=== PATIENT | female | born 1970 | race Caucasian/White ===

== ENCOUNTER 2021-11-10 08:36 | Day surgery (SDC) | payer OTHER ==
--- NOTE | 2021-11-10 08:41 | HP ---
DATE OF SURGERY: 11/10/2021 HISTORY OF PRESENT ILLNESS: The patient is a 50-year-old last colonoscopy five years or so ago, had some polyps. Denies any melena or bloody stools at this time. She had pain. No change in bowel movements. Family history of grandfather with colon cancer, negative for stomach cancer, negative for pancreatic cancer. Given history of anemia, the patient is in need for upper and lower endoscopy to rule out early GI source. PAST MEDICAL HISTORY: Diabetes. Epilepsy. Cerebral palsy. PAST SURGICAL HISTORY: section. Tubal. Cholecystectomy in the past. Colonoscopy five years ago and had history of polyps at that time. Vagus nerve stimulator. MEDICATIONS: Metformin, Trileptal, Neurontin, lisinopril, loratadine, simvastatin. ALLERGIES: SULFA. PENICILLIN. MORPHINE. CALCIUM. LATEX. FAMILY HISTORY: Grandfather with colon cancer. SOCIAL HISTORY: No smoking or alcohol abuse. REVIEW OF SYSTEMS: Fourteen systems reviewed. No chest pain or palpitations. Other systems negative or noncontributory as above and per preadmission questionnaire. PHYSICAL EXAMINATION: GENERAL: No acute distress. HEENT: Sclerae nonicteric. NECK: No JVD. CHEST: Equal excursion, nonlabored breathing. CVS: Regular rate and rhythm. ABDOMEN: Soft. No peritoneal signs. EXTREMITIES: No significant edema. NEURO: Alert, oriented, moving extremities symmetrically. RECTAL: Deferred timed to endoscopy exam. PSYCH: Appropriate mood and affect. IMPRESSION: Anemia of unclear etiology. She is in need of upper and lower endoscopy for further evaluation. She was shown the risk sheet and explained the procedure in detail including but not limited to bleeding or infection, risk of bowel injury or perforation possibly requiring open procedure, risk of missed or nondiagnosis or incomplete exam possibly requiring barium enema, barium swallow, other studies or procedures. General risk of anesthesia or sedation, risk of bowel prep but not limited to, consent obtained. Will proceed with EGD and colonoscopy as an outpatient.
[2021-11-10] MEDS ORDERED: Lactated Ringers 1,000 ML IV SCH (09:00)
[2021-11-10] MEDS ORDERED: Lactated Ringers 1,000 ML IV ONE (09:08)
[2021-11-10] MEDS ORDERED: DIPRIVAN 200 MG/20 ML IV ONE ×2 (10:37→10:55)
[2021-11-10] MEDS ORDERED: Xylocaine-Mpf 2% 5 Ml Vial ONE (10:37)
[2021-11-10 11:58] VITALS: BP 109/80; PULSE 72; O2SAT 100
--- NOTE | 2021-11-10 14:56 | OP ---
SURGERY DATE/TIME: 11/10/2021 1035 PREOPERATIVE DIAGNOSIS: Anemia. POSTOPERATIVE DIAGNOSES: 1) Minimal to mild gastritis. 2) Very short segment of early distal gastroesophagitis. 3) Small early colon polyp versus hyperplastic lesion. 4) Fair bowel prep. 5) No signs of any active major source of upper or lower GI bleeding. PROCEDURES: 1) EGD with cold biopsy of antrum to evaluate for Helicobacter pylori. 2) Cold biopsy distal esophagus to evaluate very short segment distal esophagitis. 3) Colonoscopy to cecum with hot biopsy polypectomy small sigmoid colon early polyp versus hyperplastic lesion x5 or 6. SURGEON: Dr. Antonino Hernández. ANESTHESIA: MAC. ESTIMATED BLOOD LOSS: Minimal. INDICATIONS: As noted above. Risks and benefits explained in detail and not limited to and consent obtained. DESCRIPTION OF PROCEDURE AND FINDINGS: The patient is taken to the endoscopy room. MAC anesthesia induced. After official time out and no disagreement with planned procedure, bite block positioned. Video gastroscope easily passed down the esophagus to the patent pylorus. Third, second and first portion of the duodenum grossly unremarkable. Back in the stomach, she had some mild gastric erythema and some minimal to mild gastritis. Cold biopsy taken to evaluate for Helicobacter pylori. Good hemostasis noted. On retroflex the gastroesophageal junction snug against the scope. No signs of any large hiatal hernia visible endoscopically. There were no signs of any ulcer. No signs of any obvious mass in the stomach. Scope pulled back. The gastroesophageal junction 40 cm. Z-line was fairly crisp. There was a couple little splotchy area, a little bit of redness in the distal esophagus possibly some minimal early distal esophagitis. Cold biopsy taken for pathologic evaluation. Good hemostasis noted. The remainder of the esophagus grossly unremarkable. Attention is then turned to colonoscopy. Digital rectal exam did not reveal any rectal masses. Video colonoscope inserted and passed up through the very tortuous sigmoid, descending, transverse, ascending colon around to the cecum. Appendiceal orifice and valve well visualized and photo documented. Prep overall was fair. A little bit of liquidy semi-solid stool just slightly limiting exam for very small lesions. Scope is carefully withdrawn over the next ten minutes. No signs of any large polyps, masses or obstructing lesions. No signs of any major source of any GI bleed or any major source of anemia on slow careful withdrawal of the scope. In the sigmoid colon, there were five or six very small, 2 mm early polyps versus hyperplastic lesion removed with hot biopsy forceps with brief bursts of cautery. Good hemostasis noted. Otherwise no signs of any large polyps, masses or obstructing lesions. Findings discussed with the family out in the waiting area. She tolerated the procedure well. There were no immediate complications.
== END 2021-11-10 12:05 | disposition home or self-care (01) ==
LOC: SDC 08:36
PROVIDERS: ATTEND Surgery
DX: K29.70 Gastritis, unspecified, without bleeding (principal); K63.5 Polyp of colon; Z80.0 Family history of malignant neoplasm of digestive organs; D64.9 Anemia, unspecified; E11.9 Type 2 diabetes mellitus without complications; Z86.010 Personal history of colon polyps
CPT/HCPCS: 82947; J2704

== ENCOUNTER 2024-03-17 14:10 | Emergency (ER) | payer MEDICARE ==
--- NOTE | 2024-03-17 14:16 | ERPHSYRPT ---
- History of Present Illness Time Seen by Provider: 03/17/24 14:16 Source: patient Exam Limitations: no limitations Physician History: This is a morbidly obese 53-year-old white female patient of Dr. Cartwright who has been undergoing outpatient therapy/management of low sodium level. On 03/14/2024 the patient had a serum sodium level of 128. This morning, the patient had a blood draw that showed her sodium at 125. Patient states other than a mild headache which she often has, she has no symptoms. Patient denies chest pain. Patient denies visual changes. Patient denies abdominal pain. Patient denies nausea vomiting and diarrhea symptoms. Patient states management of her low sodium has included fluid restriction and changing the type of electrolyte fluids that she was told to take orally. She has been on all her medications chronically. There is been no new changes to her medication list. Patient has a history of hyperlipidemia, diabetes, seizure disorder, hypertension and sleep apnea. Timing/Duration: today Severity: mild Modifying Factors: Improves With: nothing Associated Symptoms: headaches (Mild, generalized) Allergies/Adverse Reactions: Latex, Natural Rubber Allergy (Intermediate, Verified 01/29/24 20:29) Rash Penicillins Allergy (Intermediate, Verified 01/29/24 20:29) Rash kidney pain Sulfa (Sulfonamide Antibiotics) Allergy (Intermediate, Verified 01/29/24 20:29) Rash calcium Allergy (Mild, Verified 01/29/24 20:29) Rash morphine Adverse Reaction (Mild, Verified 01/29/24 20:29) Nausea and Vomiting IV contrast Allergy (Mild, Uncoded 01/29/24 20:33) Home Medications: Fluticasone Propionate [Flonase NASAL] 16 gm NS DAILY PRN PRN 11/21/20 [History] Gabapentin [Neurontin] 300 mg PO BID 11/21/20 [History] Loratadine 10 mg [Claritin 10 mg] 10 mg PO DAILY PRN PRN 11/21/20 [History] Metformin HCl 500 mg [Glucophage 500 MG] 500 mg PO BIDWM 11/21/20 [His tory] OXcarbazepine [Trileptal] 600 mg PO BID 11/21/20 [History] Simvastatin 20Mg [Zocor 20Mg] 40 mg PO DAILY 11/21/20 [History] Albuterol 17 gm IH BID 06/05/21 [History] Lisinopril 10 mg [Zestril 10 MG] 10 mg PO DAILY 11/05/21 [History] Umeclidinium Brm/Vilanterol Tr [Anoro Ellipta 62.5-25 Mcg INH] 1 inh PO DAILY 11/05/21 [History] Semaglutide [Ozempic] 2 mg SQ WEEKLY 01/29/24 [History] Hx Tetanus, Diphtheria Vaccination/Date Given: No Hx Influenza Vaccination/Date Given: Yes Hx Pneumococcal Vaccination/Date Given: No Travel Risk - International Travel Have you traveled outside of the country in past 3 weeks: No - Emerging Infectious Disease Are you exhibiting symptoms associated with any current EIDs: No - Review of Systems Constitutional: No Symptoms Eyes: No Symptoms Ears, Nose, & Throat: No Symptoms Respiratory: No Symptoms Cardiac: No Symptoms Abdominal/Gastrointestinal: No Symptoms Genitourinary Symptoms: No Symptoms Musculoskeletal: No Symptoms Skin: No Symptoms Neurological: Headache (Mild, generalized) Psychological: No Symptoms Endocrine: No Symptoms Hematologic/Lymphatic: No Symptoms Immunological/Allergic: No Symptoms All Other Systems: Reviewed and Negative - Past Medical History Pertinent Past Medical History: Yes Neurological History: Seizures, Other ENT History: No Pertinent History Cardiac History: High Cholesterol, Hypertension Respiratory History: Sleep Apnea Endocrine Medical History: Diabetes Type II Musculoskeletal History: Osteoarthritis GI Medical History: No Pertinent History History: No Pertinent History Psycho-Social History: No Pertinent History Female Reproductive Disorders: No Pertinent History Other Medical History: Cerebral Palsey with R sided effect. Stefan nerve stimulator. - Past Surgical History Past Surgical History: Yes Neuro Surgical History: No Pertinent History Cardiac: Cardiac Catheterization Respiratory: No Pertinent History Gastrointestinal: Appendectomy, Cholecystectomy Genitourinary: No Pertinent History Musculoskeletal: Other Female Surgical History: Section, Tubal Ligation Other Surgical History: vagal nerve stimulator implanted,carpal tunnel release. tendon stretched right ankle. - Social History Smoking Status: Never smoker Exposure to second hand smoke: No Drug Use: none - Social Determinants of Health Will the patient participate in the screening: Yes Do you worry about a steady place to live?: No In the past 12 months,have you had to go without utilities?: No Transportation Issues: No Has anyone in your support network made you feel unsafe?: No Have you or anyone in your house had to go without enough: No - Nursing Vital Signs Nursing Vital Signs: Initial Vital Signs Temperature 97.7 F 03/17/24 14:22 Pulse Rate 86 03/17/24 14:22 Respiratory Rate 18 03/17/24 14:22 Blood Pressure 157/88 03/17/24 14:22 O2 Sat by Pulse Oximetry 98 03/17/24 14:22 Pain Scale Pain Intensity 0 - Physical Exam General Appearance: no apparent distress, alert, anxiety, obese Eye Exam: PERRL/EOMI, eyes nml inspection Ears, Nose, Throat Exam: normal ENT inspection, moist mucous membranes Neck Exam: normal inspection, non-tender, supple, full range of motion Respiratory Exam: normal breath sounds, lungs clear, airway intact, No chest tenderness, No respiratory distress Cardiovascular Exam: regular rate/rhythm, normal heart sounds, normal peripheral pulses Gastrointestinal/Abdomen Exam: soft, normal bowel sounds, No tenderness Pelvic Exam: not done Rectal Exam: not done Extremity Exam: normal inspection, normal range of motion, pelvis stable Neurologic Exam: alert, oriented x 3, cooperative, caser in II-XII nml as tested, normal mood/affect, nml cerebellar function, nml station & gait, sensation nml Skin Exam: normal color, warm, dry Lymphatic Exam: No adenopathy SpO2 Interpretation: normal O2 Delivery: Room Air - Course Nursing assessment & vital signs reviewed: Yes Ordered Tests: Active Orders 24 hr Category Date Time Status IV Insertion STAT Care 03/17/24 14:53 Active CBC W DIFF Stat Lab 03/17/24 14:40 Completed CMP Stat Lab 03/17/24 14:40 Completed CULTURE,URINE Stat Lab 03/17/24 15:08 Received MAGNESIUM Stat Lab 03/17/24 14:40 Completed POTASSIUM, URINE RANDOM Stat Lab 03/17/24 15:08 Completed Sodium, Urine Stat Lab 03/17/24 15:08 Completed UA W/RFX UR CULTURE Stat Lab 03/17/24 15:08 Completed Medication Summary Generic Name Dose Route Start Last Admin Trade Name Freq PRN Reason Stop Dose Admin Magnesium Oxide 400 mg 03/18/24 18:04 03/17/24 18:08 Magnesium Oxide 400 Mg Tablet PO 03/18/24 18:05 400 mg STAT ONE Administration Discontinued Medications Generic Name Dose Route Start Last Admin Trade Name Freq PRN Reason Stop Dose Admin Sodium Chloride 1,000 mls @ 999 mls/hr 03/17/24 14:53 03/17/24 16:40 Sodium Chloride 0.9% 1000 Ml IV 03/17/24 15:53 Infused .Q1H1M STA Infusion Sodium Chloride Confirm 03/17/24 14:58 Sodium Chloride 0.9% 1000 Ml Administered 03/17/24 14:59 Dose 1,000 mls @ ud .ROUTE .STK-MED ONE Levofloxacin/Dextrose 500 mg in 100 mls @ 100 mls/hr 03/17/24 16:27 03/17/24 17:53 Levofloxacin 500mg/100ml D5w IV 03/17/24 17:26 Infused STAT STA Infusion Levofloxacin/Dextrose Confirm 03/17/24 16:34 Levofloxacin 500mg/100ml D5w Administered 03/17/24 16:35 Dose 500 mg in 100 mls @ ud IV .STK-MED ONE Magnesium Oxide Confirm 03/17/24 18:06 Magnesium Oxide 400 Mg Tablet Administered 03/17/24 18:07 Dose 400 mg .ROUTE .STK-MED ONE Lab/Rad Data: Laboratory Result Diagrams 03/17/24 14:40 03/17/24 14:40 Laboratory Results 03/17/24 03/17/24 03/17/24 Range/Units 15:08 15:08 14:40 WBC (3.98-10.04) x10^3/uL RBC (3.93-5.22) x10^6/uL Hgb (11.2-15.7) g/dL Hct (34.1-44.9) % MCV (79.4-94.8) fL MCH (25.6-32.2) pg MCHC (32.2-35.5) g/dL RDW (11.7-14.4) % Plt Count (182-369) x10^3/uL MPV (9.4-12.3) fL Gran % (34.0-71.1) % Immature Gran % (Auto) (0.001-0.429) % Nucleat RBC Rel Count (0.00-0.2) % Eos # (Auto) (0.04-0.36) x10^3/uL Immature Gran # (Auto) (0.001-0.031) x10^3u/L Absolute Lymphs (auto) (1.18-3.74) x10^3/uL Absolute Monos (auto) (0.24-0.86) x10^3/uL Absolute Nucleated RBC (0.00-0.012) x10^3u/L Lymphocytes % (19.3-51.7) % Monocytes % (4.7-12.5) % Eosinophils % (0.7-5.8) % Basophils % (0.1-1.2) % Absolute Granulocytes (1.56-6.13) x10^3/uL Basophils # (0.01-0.08) x10^3/uL Sodium 122 L (135-145) mmol/L Potassium 4.0 (3.5-5.1) mmol/L Chloride 90 L (98-107) mmol/L Carbon Dioxide 24 (22-30) mmol/L Anion Gap 12.2 (5-15) MEQ/L BUN 12 (7-17) mg/dL Creatinine 0.79 (0.52-1.04) mg/dL Estimated GFR 90.0 ML/MIN Glucose 94 (74-106) mg/dL Calcium 8.7 (8.4-10.2) mg/dL Magnesium 1.5 L (1.6-2.3) mg/dL Total Bilirubin 0.30 (0.2-1.3) mg/dL AST 25 (14-36) U/L ALT 26 (0-35) U/L Alkaline Phosphatase 126 (38-126) U/L Serum Total Protein 6.3 (6.3-8.2) g/dL Albumin 3.8 (3.5-5.0) g/dL Urine Color Yellow (Yellow) Urine Appearance Clear (Clear) Urine pH 6.5 (4.6-8.0) Ur Specific [place] 1.015 (1.005-1.030) Urine Protein Negative (Negative) Urine Glucose (UA) Negative (Negative) mg/dL Urine Ketones Negative (Negative) Urine Blood Negative (Negative) Urine Nitrite Negative (Negative) Urine Bilirubin Negative (Negative) Urine Urobilinogen 0.2 (0.2) mg/dL Ur Leukocyte Esterase Small A (Negative) U Hyaline Cast (Auto) NONE SEEN (0-2) /LPF Urine Microscopic RBC 0-2 (0-5) /HPF Urine Microscopic WBC 21-50 A (0-5) /HPF Ur Epithelial Cells Rare (None Seen) /HPF Urine Bacteria None Seen (None Seen) /HPF Urine Culture Reflexed YES (NO) Urine Sodium 128 H (30-90) mmol/L Urine Potassium 39.1 H (0.1-0.7) mmol/L 07// Range/Units 14:40 WBC 5.0 (3.98-10.04) x10^3/uL RBC 3.84 L (3.93-5.22) x10^6/uL Hgb 10.6 L (11.2-15.7) g/dL Hct 31.3 L (34.1-44.9) % MCV 81.5 (79.4-94.8) fL MCH 27.6 (25.6-32.2) pg MCHC 33.9 (32.2-35.5) g/dL RDW 13.9 (11.7-14.4) % Plt Count 264 (182-369) x10^3/uL MPV 8.4 L (9.4-12.3) fL Gran % 73.1 H (34.0-71.1) % Immature Gran % (Auto) 0.4 (0.001-0.429) % Nucleat RBC Rel Count 0.0 (0.00-0.2) % Eos # (Auto) 0 L (0.04-0.36) x10^3/uL Immature Gran # (Auto) 0.02 (0.001-0.031) x10^3u/L Absolute Lymphs (auto) 0.91 L (1.18-3.74) x10^3/uL Absolute Monos (auto) 0.39 (0.24-0.86) x10^3/uL Absolute Nucleated RBC 0.00 (0.00-0.012) x10^3u/L Lymphocytes % 18.4 L (19.3-51.7) % Monocytes % 7.9 (4.7-12.5) % Eosinophils % 0.0 L (0.7-5.8) % Basophils % 0.2 (0.1-1.2) % Absolute Granulocytes 3.62 (1.56-6.13) x10^3/uL Basophils # 0.01 (0.01-0.08) x10^3/uL Sodium (135-145) mmol/L Potassium (3.5-5.1) mmol/L Chloride (98-107) mmol/L Carbon Dioxide (22-30) mmol/L Anion Gap (5-15) MEQ/L BUN (7-17) mg/dL Creatinine (0.52-1.04) mg/dL Estimated GFR ML/MIN Glucose (74-106) mg/dL Calcium (8.4-10.2) mg/dL Magnesium (1.6-2.3) mg/dL Total Bilirubin (0.2-1.3) mg/dL AST (14-36) U/L ALT (0-35) U/L Alkaline Phosphatase (38-126) U/L Serum Total Protein (6.3-8.2) g/dL Albumin (3.5-5.0) g/dL Urine Color (Yellow) Urine Appearance (Clear) Urine pH (4.6-8.0) Ur Specific [place] (1.005-1.030) Urine Protein (Negative) Urine Glucose (UA) (Negative) mg/dL Urine Ketones (Negative) Urine Blood (Negative) Urine Nitrite (Negative) Urine Bilirubin (Negative) Urine Urobilinogen (0.2) mg/dL Ur Leukocyte Esterase (Negative) U Hyaline Cast (Auto) (0-2) /LPF Urine Microscopic RBC (0-5) /HPF Urine Microscopic WBC (0-5) /HPF Ur Epithelial Cells (None Seen) /HPF Urine Bacteria (None Seen) /HPF Urine Culture Reflexed (NO) Urine Sodium (30-90) mmol/L Urine Potassium (0.1-0.7) mmol/L - Progress Progress: unchanged Progress Note: 03/17/24 15:12 My medical decision making and the assignment of moderate complexity to this patient's medical issue today is based on review of the patient's past medical history, review patient medication list, review of patient drug allergy list, history present illness and physical findings on examination. The workup in this patient includes placement of intravenous line, infusion of normal saline solution, CBC, CMP, magnesium level, urinalysis, urine sodium, urine potassium, urine osmolality. Differential diagnosis includes but not limited to hyponatremia, UTI, dehydration 03/17/24 17:29 I interpreted the patient's laboratory data results. The patient has hyponatremia that is worse than the labs showed this morning. She also has a urinary tract infection and is mildly dehydrated. I spoke with the telehospitalist, Dr. Mckeon. I reviewed the patient history, presenting complaint, physical findings on examination and the results of the laboratory studies. The hospitalist is concerned that this patient's sodium is actually lower than when the process of outpatient management began. The patient is on fluid restriction and is receiving electrolyte fluid supplementation without benefit. She prefers the patient be transferred to a facility where there is a resource economist is available. 03/17/24 18:10 I reviewed the patient history, presenting complaint, physical findings on examination results of laboratory studies with the transfer center at [facility]. Patient is auto accepted. The accepting physician is Dr.Jin Vo. Counseled pt/family regarding: lab results, diagnosis Medical Desision Making - Diagnostic Testing Diagnostic test were ordered, analyzed, and reviewed by me: Yes - Risk of complications Minimal Risk: Minimal risk of morbidity - Departure Clinical Impression: Hyponatremia, UTI (urinary tract infection), Weakness, Headache Condition: Stable Critical Care Time: No Referrals: DUSTIN CARTWRIGHT, [Primary Care Provider] - Follow up/PCP as directed Additional Instructions: Follow your outpatient management in terms of amount of fluid intake and type of fluid intake. Continue medication as prescribed. Call your primary care provider today, 03/17/2024, to make arrangements for follow-up appointment for further evaluation and management including having them evaluate and review the urine electrolyte and osmolality and possible referral to a resource economist if they feel it is indicated.
[2024-03-17 14:27] VITALS: TEMP 97.7
[2024-03-17] MEDS ORDERED: Sodium Chloride 0.9% 1000 ML 1,000 ML ONE (14:58)
[2024-03-17] MEDS: Sodium Chloride 0.9% 1000 ML 1,000 ML IV STA (15:02)
[2024-03-17 15:05] LABS: Absolute Neutrophil Ct (ANC) 3.62 x10^3/uL (1.56-6.13); BASOPHIL % 0.2 % (0.1-1.2); Basophil (Absolute #) 0.01 x10^3/uL (0.01-0.08); Eosinophil (Absolute #) 0 x10^3/uL (0.04-0.36); Hematocrit 31.3 % (34.1-44.9); Hemoglobin 10.6 g/dL (11.2-15.7); IMMATURE GRAN # 0.02 x10^3u/L (0.001-0.031); IMMATURE GRAN % 0.4 % (0.001-0.429); Lymphocyte (Absolute #) 0.91 x10^3/uL (1.18-3.74); Lymphocytes % 18.4 % (19.3-51.7); Mean Cell Volume 81.5 fL (79.4-94.8); Mean Corpuscular Hemoglobin 27.6 pg (25.6-32.2); Mean Corpuscular Hgb Concent. 33.9 g/dL (32.2-35.5); Mean Platelet Volume 8.4 fL (9.4-12.3); Monocyte (Absolute #) 0.39 x10^3/uL (0.24-0.86); Monocytes % 7.9 % (4.7-12.5); Neutrophil % 73.1 % (34.0-71.1); Platelet Count 264 x10^3/uL (182-369); Red Blood Count 3.84 x10^6/uL (3.93-5.22); Red Cell Distribution Width 13.9 % (11.7-14.4)
[2024-03-17 15:20] LABS: Appearance Clear (Clear); Bacteria None Seen /HPF (None Seen); Bilirubin Negative (Negative); Blood Negative (Negative); Epithelial Cells Rare /HPF (None Seen); Glucose, Urine Negative (Negative); Hyaline Casts NONE SEEN /LPF (0-2); Ketones Negative (Negative); Leukocyte Esterase Small (Negative); Nitrite Negative (Negative); Ph 6.5 (4.6-8.0); Protein,Urine Dip Negative (Negative); RBC 0-2 /HPF (0-5); Specific Gravity 1.015 (1.005-1.030); Urobilinogen 0.2 mg/dL (0.2); WBC 21-50 /HPF (0-5)
[2024-03-17 15:20] LABS: ALBUMIN 3.8 g/dL (3.5-5.0); ANION GAP 12.2 MEQ/L (5-15); BILIRUBIN,TOTAL 0.3 mg/dL (0.2-1.3); Calcium 8.7 mg/dL (8.4-10.2); Creatinine 1 0.79 mg/dL (0.52-1.04); MAGNESIUM 1.5 mg/dL (1.6-2.3); Total Protein 6.3 g/dL (6.3-8.2)
[2024-03-17 15:21] LABS: ADD URINE CULTURE? YES (NO)
[2024-03-17 15:30] LABS: POTASSIUM, URINE RANDOM 39.1 mmol/L (0.1-0.7)
[2024-03-17] MEDS ORDERED: Levofloxacin 500MG/100ML D5W 500 MG/100 ML BAG IV ONE (16:34)
[2024-03-17] MEDS: Levofloxacin 500MG/100ML D5W 500 MG/100 ML BAG IV STA (16:37)
[2024-03-17] MEDS ORDERED: MAG-OX 400 ONE (18:06)
[2024-03-17] MEDS: MAG-OX 400 PO ONE (18:08)
[2024-03-17] MEDS ORDERED: Zofran 4 MG/2 ML VIAL ONE (19:34)
[2024-03-17] MEDS ORDERED: Zofran 4 MG/2 ML VIAL IV PRN (19:36)
[2024-03-17] MEDS ORDERED: Compazine 10 MG/2 ML ONE (19:42)
[2024-03-17] MEDS ORDERED: Sodium Chloride 0.9% 500 ML 500 ML IV ONE (19:42)
[2024-03-17] MEDS: Compazine 10 MG/2 ML IV ONE (19:47)
[2024-03-17] MEDS: Sodium Chloride 0.9% 500 ML 500 ML IV ONE (19:47)
[2024-03-17 21:03] VITALS: BP 142/94; PULSE 82; RESP 18; O2SAT 96
== END 2024-03-17 21:15 | disposition short-term general hospital (02) ==
LOC: ED 14:10
DX: E87.1 Hypo-osmolality and hyponatremia (principal); N39.0 Urinary tract infection, site not specified; R53.1 Weakness; R51.9 Headache, unspecified; E78.5 Hyperlipidemia, unspecified; E11.9 Type 2 diabetes mellitus without complications; I10 Essential (primary) hypertension; Z79.84 Long term (current) use of oral hypoglycemic drugs; Z79.85 Long-term (current) use of injectable non-insulin antidiabetic drugs; Z79.899 Other long term (current) drug therapy
CPT/HCPCS: 36000; 36415; 80053; 81001; 83735; 83935; 84133; 84300; 85025; 87077; 87086; 87186; 96360; 96365; 99285; J1956; J2405; A9270-GY

== ENCOUNTER 2024-11-05 15:30 | Emergency (ER) | payer MEDICARE ==
[2024-11-05 16:03] VITALS: BP 115/85; PULSE 89; O2SAT 98
--- NOTE | 2024-11-05 16:09 | ERPHSYRPT ---
- History of Present Illness Time Seen by Provider: 11/05/24 16:09 Source: patient Exam Limitations: no limitations Patient Subjective Stated Complaint: cough, congestion, right sided headache, right eye gunky, lots of drainage for 3 weeks Triage Nursing Assessment: Pt brought self to the ER, vitals wnl, rates head pain as 4/10, pulses normal, skin n/w/d, congested, non productive cough, has completed a 10 day round of antibiotics with no change, denies chest pain, doesn't appear to be in any distress Allergies/Adverse Reactions: Latex, Natural Rubber Allergy (Intermediate, Verified 11/05/24 16:03) Rash Penicillins Allergy (Intermediate, Verified 11/05/24 16:03) Rash kidney pain Sulfa (Sulfonamide Antibiotics) Allergy (Intermediate, Verified 11/05/24 16:03) Rash calcium Allergy (Mild, Verified 11/05/24 16:03) Rash morphine Adverse Reaction (Mild, Verified 11/05/24 16:03) Nausea and Vomiting IV contrast Allergy (Mild, Uncoded 11/05/24 16:03) Home Medications: Fluticasone Propionate [Flonase NASAL] 16 gm NS DAILY PRN PRN 11/21/20 [History] Gabapentin [Neurontin] 300 mg PO BID 11/21/20 [History] Loratadine 10 mg [Claritin 10 mg] 10 mg PO DAILY PRN PRN 11/21/20 [History] Metformin HCl 500 mg [Glucophage 500 MG] 500 mg PO BIDWM 11/21/20 [History] OXcarbazepine [Trileptal] 600 mg PO BID 11/21/20 [History] Simvastatin 20Mg [Zocor 20Mg] 40 mg PO DAILY 11/21/20 [History] Albuterol 17 gm IH BID 06/05/21 [History] Lisinopril 10 mg [Zestril 10 MG] 10 mg PO DAILY 11/05/21 [History] Umeclidinium Brm/Vilanterol Tr [Anoro Ellipta 62.5-25 Mcg INH] 1 inh PO DAILY 11/05/21 [History] Semaglutide [Ozempic] 2 mg SQ WEEKLY 01/29/24 [History] Hx Tetanus, Diphtheria Vaccination/Date Given: No Hx Influenza Vaccination/Date Given: Yes Hx Pneumococcal Vaccination/Date Given: No Travel Risk - International Travel Have you traveled outside of the country in past 3 weeks: No - Emerging Infectious Disease Are you exhibiting symptoms associated with any current EIDs: No - Past Medical History Pertinent Past Medical History: Yes Neurological History: Seizures, Other ENT History: No Pertinent History Cardiac History: High Cholesterol, Hypertension Respiratory History: Sleep Apnea Endocrine Medical History: Diabetes Type II Musculoskeletal History: Osteoarthritis GI Medical History: No Pertinent History History: No Pertinent History Psycho-Social History: No Pertinent History Female Reproductive Disorders: No Pertinent History Other Medical History: Cerebral Palsey with R sided effect. Stefan nerve stimulator. - Past Surgical History Past Surgical History: Yes Neuro Surgical History: No Pertinent History Cardiac: Cardiac Catheterization Respiratory: No Pertinent History Gastrointestinal: Appendectomy, Cholecystectomy Genitourinary: No Pertinent History Musculoskeletal: Other Female Surgical History: Section, Tubal Ligation Other Surgical History: vagal nerve stimulator implanted,carpal tunnel release. tendon stretched right ankle. - Female History Hx Last Menstrual Period: menopause Hx Now: No - Social History Smoking Status: Never smoker Exposure to second hand smoke: No Drug Use: none - Social Determinants of Health Will the patient participate in the screening: Yes Do you worry about a steady place to live?: No Do you have any problems with any of the following?: No known problems In the past 12 months,have you had to go without utilities?: No Transportation Issues: No Has anyone in your support network made you feel unsafe?: No Have you or anyone in your house had to go w/o enough food: No - Nursing Vital Signs Nursing Vital Signs: Initial Vital Signs Pulse Rate 89 11/05/24 15:52 Blood Pressure 115/85 11/05/24 15:52 O2 Sat by Pulse Oximetry 98 11/05/24 15:52 Pain Scale Pain Intensity 4 - Physical Exam SpO2: 98 - Departure Departure Disposition: Home Clinical Impression: Acute bacterial sinusitis Condition: Good Critical Care Time: No Referrals: DUSTIN CARTWRIGHT DO [Primary Care Provider] - Follow up/PCP as directed Instructions: Sinusitis in adults Prescriptions: Doxycycline Hyclate 100 mg PO BID 10 Days #19 tablet predniSONE [Prednisone] 50 mg PO DAILY 4 Days #4 tablet
[2024-11-05] MEDS ORDERED: Vibramycin 100 MG ONE (16:17)
[2024-11-05] MEDS ORDERED: DELTASONE 20 MG ONE (16:17)
[2024-11-05] MEDS: DELTASONE 20 MG PO ONE (16:17)
[2024-11-05] MEDS: Vibramycin 100 MG PO ONE (16:18)
== END 2024-11-05 16:33 | disposition home or self-care (01) ==
LOC: ED 15:30
DX: J01.90 Acute sinusitis, unspecified (principal); B96.89 Other specified bacterial agents as the cause of diseases classified elsewhere; R05.9 Cough, unspecified; R51.9 Headache, unspecified; E78.5 Hyperlipidemia, unspecified; I10 Essential (primary) hypertension; E11.9 Type 2 diabetes mellitus without complications; Z79.52 Long term (current) use of systemic steroids; Z79.84 Long term (current) use of oral hypoglycemic drugs; Z79.85 Long-term (current) use of injectable non-insulin antidiabetic drugs; Z79.899 Other long term (current) drug therapy
CPT/HCPCS: 99282; 99283; A9270-GY